=== PATIENT | male | born 1945 | race Caucasian/White ===

== ENCOUNTER 2021-06-22 14:04 | Emergency (ER) | payer MEDICARE, OTHER ==
[~2021-06-22] VITALS: Ht 177.8 cm; Wt 74.8 kg
[2021-06-22] MEDS ORDERED: VYTORIN 10-101 EACH PO (14:22)
[2021-06-22 16:23] VITALS: BP 145/78
== END 2021-06-22 16:24 | disposition home or self-care (01) ==
LOC: M.ERS 14:04
DX: S01.111A Laceration without foreign body of right eyelid and periocular area, initial encounter (principal); Z85.51 Personal history of malignant neoplasm of bladder; Z79.899 Other long term (current) drug therapy; Z88.8 Allergy status to other drugs, medicaments and biological substances; W22.8XXA Striking against or struck by other objects, initial encounter; Y93.89 Activity, other specified; Y92.59 Other trade areas as the place of occurrence of the external cause; Y99.8 Other external cause status